=== PATIENT | female | born 1975 | race Caucasian/White ===

== ENCOUNTER 2019-05-23 15:16 | Emergency (ER) | payer BC ==
--- OUTSIDE RECORDS SUMMARY | 2019-05-23 15:32 | XMS REPORT | Clinical Summary ---
:1975 Author Organization [facility] Address [address] [place] [id number] Care Team Providers Name Role Phone James Linton MD Primary Care Provider Allergies No Known Allergies Medications Medication Sig Dispensed Refills Start Date End Date Status citalopram (CeleXA) 20 Take 20 mg by 0 Active MG tablet mouth daily. HYDROcodone-acetaminophe Take 1 tablet by 0 Active n (NORCO) 10-325 mg per mouth every 6 tablet (six) hours as needed for moderate pain. cyclobenzaprine Take 10 mg by 0 Active (FLEXERIL) 10 mg tablet mouth 3 (three) times a day as needed for muscle spasms. gabapentin (NEURONTIN) Take 100 mg by 0 Active 100 mg capsule mouth nightly. Active Problems Problem Noted Date Acute bilateral low back pain with right-sided sciatica 02/17/2017 Lumbar strain 02/17/2017 Lumbar degenerative disc disease 02/17/2017 Social History Tobacco Use Types Packs/Day Years Used Date Never Assessed Sex Assigned at Date Recorded Not on file Job Start Date Occupation Industry Not on file Not on file Not on file Travel History Travel Start Travel End No recent travel history available. Last Filed Vital Signs Not on file Plan of Treatment Health Maintenance Due Date Last Done Comments INFLUENZA VACCINE 05/17/2019 Results Not on fileafter 05/22/2018 (Home) [address] [place] [address] Advance Directives Patient has advance care planning documents on file. For more information, please contact:Jah Garay[address] [address]
[2019-05-23] MEDS ORDERED: NA CHLORIDE 0.9% 1,000 ML ONE (15:52)
[2019-05-23 15:54] LABS: Absolute Lymphocytes (CBC) 2.3 K/uL (0.7-4.9); Basophils % 1.1 % (0-1.3); RBC Red Blood Cell Count 3.97 M/uL (3.86-4.86)
[2019-05-23 16:18] LABS: ALT/SGPT 42 U/L (12-78); AST/SGOT 14 U/L (15-37); Albumin 3.5 g/dL (3.4-5.0); Alkaline Phosphatase 79 U/L (45-117); BUN Blood Urea Nitrogen 18 mg/dL (7-18); Bicarbonate 24 mmol/L (21-32); Bilirubin Direct < 0.1 mg/dL (0-0.2); Bilirubin Total 0.3 mg/dL (0.2-1.0); Glucose Level 145 mg/dL (74-106); Lipase 101 U/L (73-393); Potassium 3.4 mmol/L (3.5-5.1); Protein, Total 6.2 g/dL (6.4-8.2); Sodium Level 142 mmol/L (136-145)
--- NOTE | 2019-05-23 16:58 | RAD REPORT ---
EXAM DESCRIPTION: CT - Abdomen Pelvis W Contrast - 05/23/2019 4:35 pm CLINICAL HISTORY: Abdominal pain . COMPARISON: 2016 TECHNIQUE: Computed axial tomography of the abdomen pelvis was obtained. 100 cc Isovue-300 was admin istered intravenously. Oral contrast was not requested which limits evaluation of bowel. All CT scans are performed using dose optimization technique as appropriate and may include automated exposure control or mA/KV adjustment according to patient size. FINDINGS: A 5 millimeter calculus left kidney. No hydronephrosis. Right kidney unremarkable Postsurgical changes involve the stomach. Cholecystectomy The liver, spleen, pancreas, adrenal appear unremarkable. There is no evidence of diverticulitis. Normal appendix Hysterectomy. 2 centimeter irregularly-shaped left ovarian cyst without significant free fluid IMPRESSION: 2 centimeter irregularly-shaped left ovarian cyst without significant free fluid. 5 millimeter nonobstructing left renal calculus
--- NOTE | 2019-05-23 17:07 | ER ---
Nurse's Notes [facility] Name: Mary Carter Age: 43 yrs Sex: Female : 1975 Arrival Date: 05/23/2019 Time: 15:18 Bed 16 Private MD: Diagnosis: Unspecified ovarian cysts Presentation: 05/23 15:24 Presenting complaint: Patient states: LUQ abdominal pain and fatigue with bloating aj since October. Transition of care: patient was not received from another setting of care. Onset of symptoms was October 2018. Risk Assessment: Do you want to hurt yourself or someone else? Patient reports no desire to harm self or others. Initial Sepsis Screen: Does the patient meet any 2 criteria? No. Patient's initial sepsis screen is negative. Does the patient have a suspected source of infection? No. Patient's initial sepsis screen is negative. Care prior to arrival: None. 15:24 Method Of Arrival: Ambulatory aj 15:24 Acuity: MALIA 3 aj Triage Assessment: 15:25 General: Appears in no apparent distress. comfortable, Behavior is calm, cooperative, aj appropriate for age. Pain: Complains of pain in left upper quadrant. Neuro: Level of Consciousness is awake, alert, obeys commands, Oriented to person, place, time, situation, Appropriate for age. Respiratory: Airway is patent Respiratory effort is even, unlabored, Respiratory pattern is regular, symmetrical. GI: Reports upper abdominal pain, bloating. Derm: Skin is intact, is healthy with good turgor, Skin is pink, warm \T\ dry. normal. 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 - Social history:: Smoking status: Patient/guardian denies using tobacco. - Ebola Screening: : Patient negative for fever greater than or equal to 101.5 degrees Fahrenheit, and additional compatible Ebola Virus Disease symptoms Patient denies exposure to infectious person Patient denies travel to an Ebola-affected area in the 21 days before illness onset No symptoms or risks identified at this time. Screenin:57 Abuse screen: Denies threats or abuse. Denies injuries from another. Nutritional screening: No deficits noted. Tuberculosis screening: No symptoms or risk factors identified. Fall Risk None identified. Assessment: 15:57 GI: Bowel sounds present X 4 quads. Abd is soft and non tender in right upper quadrant wh and right lower quadrant Abdomen is tender to palpation in left upper quadrant and left lower quadrant. 16:09 Reassessment: Patient appears in no apparent distress at this time. Patient and/or wh family updated on plan of care and expected duration. Pain level reassessed. Patient is alert, oriented x 3, equal unlabored respirations, skin warm/dry/pink. 17:44 Reassessment: Patient appears in no apparent distress at this time. Patient and/or wh family updated on plan of care and expected duration. Pain level reassessed. Patient is alert, oriented x 3, equal unlabored respirations, skin warm/dry/pink. Patient states feeling better. Vital Signs: 15:25 BP 126 / 73; Pulse 95; Resp 16; Temp 98.5; Pulse Ox 98% on R/A; Weight 68.04 kg; Height aj 5 ft. 6 in. (167.64 cm); 16:01 BP 112 / 80; Pulse 86; Resp 16; Pulse Ox 97% on R/A; wh 17:30 BP 113 / 77; Pulse 60; Resp 18; Pulse Ox 97% on R/A; wh 15:25 Body Mass Index 24.21 (68.04 kg, 167.64 cm) ED Course: 15:18 Patient arrived in ED. as 15:21 Deepthi Espana FNP-C [facility]. kb 15:21 Bobby Llamas MD is Attending Physician. kb 15:25 Triage completed. aj 15:25 Arm band placed on left wrist. Patient placed in an exam room. aj 15:31 Yodit Mix is Primary Nurse. 15:40 Inserted saline lock: 22 gauge in right antecubital area, using aseptic technique. Blood collected. 15:58 Patient has correct armband on for positive identification. Bed in low position. Call light in reach. Side rails up X 1. Pulse ox on. NIBP on. 16:35 CT Abd/Pelvis - IV Contrast Only In Process Unspecified. EDMS 16:35 CT completed. Patient tolerated procedure well. Patient moved to CT. Patient moved back nj from CT. 17:45 No provider procedures requiring assistance completed. IV discontinued, intact, bleeding controlled, No redness/swelling at site. Administered Medications: 15:57 Drug: NS 0.9% 1000 ml Route: IV; Rate: 1000 ml; Site: right antecubital; 17:46 Follow up: Response: No adverse reaction; IV Status: Completed infusion 17:20 Drug: TORadol - Ketorolac 15 mg Route: IVP; Site: right antecubital; 17:46 Follow up: Response: No adverse reaction Outcome: 17:06 Discharge ordered by . hyun 17:45 Discharged to home ambulatory. 17:45 Condition: good 17:45 Discharge instructions given to patient, Instructed on discharge instructions, follow up and referral plans. medication usage, POC Ovarian Cyst Demonstrated understanding of instructions, follow-up care, medications, POC Prescriptions given X 1. 17:46 Patient left the ED. Signatures: Dispatcher [employer] EDMS Deepthi Espana, DESTINY-C INFANT AND TODDLER TEACHER-Shelby Lynne, RN Alysa Koch Nathan nj Habalo, Winsy Corrections: (The following items were deleted from the chart) 16:00 15:25 Allergies: citalopram; [facility] 16:00 15:25 PMHx: GERD; [facility] 16:00 15:57 GI: Bowel sounds present X 4 quads. Abd is soft and non tender [facility]
--- NOTE | 2019-05-23 17:07 | EDPHYS ---
Physician Documentation [facility] Name: Mary Carter Age: 43 yrs Sex: Female : 1975 Arrival Date: 05/23/2019 Time: 15:18 Bed 16 Private MD: DORON Physician Bobby Llamas HPI: 05/23 15:48 This 43 yrs old Female presents to ER via Ambulatory with complaints of kb Abdominal Pain, Diarrhea. 15:48 The patient presents with abdominal pain in the left upper quadrant, in the left lower kb quadrant. Onset: The symptoms/episode began/occurred 7 month(s) ago. The symptoms do not radiate. Associated signs and symptoms: none. The symptoms are described as intermittent, sharp. Modifying factors: The symptoms are alleviated by nothing, the symptoms are aggravated by food. Severity of pain: At its worst the pain was moderate in the emergency department the pain has improved. The patient has not experienced similar symptoms in the past. The patient has not recently seen a physician. Pt reports she has felt very tired and lethargic over the past 7 months. States whatever she eats comes out the other end undigested so she is concerned that she is deficient in something. Was seen by the surgeon that did her gastric sleeve for the digestion concern and he checked her sleeve and small intestine and said everything was fine. Was scheduled to have a colonoscopy but didn't think she could make it to the appt without falling asleep. Her doctors are in [facility]. 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 - Social history:: Smoking status: Patient/guardian denies using tobacco. - Ebola Screening: : Patient negative for fever greater than or equal to 101.5 degrees Fahrenheit, and additional compatible Ebola Virus Disease symptoms Patient denies exposure to infectious person Patient denies travel to an Ebola-affected area in the 21 days before illness onset No symptoms or risks identified at this time. ROS: 15:48 Eyes: Negative for injury, pain, redness, and discharge, ENT: Negative for injury, kb pain, and discharge, Neck: Negative for injury, pain, and swelling, Cardiovascular: Negative for chest pain, palpitations, and edema, Respiratory: Negative for shortness of breath, cough, wheezing, and pleuritic chest pain, Back: Negative for injury and pain, : Negative for injury, bleeding, discharge, and swelling, MS/Extremity: Negative for injury and deformity, Skin: Negative for injury, rash, and discoloration, Neuro: Negative for headache, weakness, numbness, tingling, and seizure. 15:48 Constitutional: Positive for fatigue, malaise. 15:48 Abdomen/GI: Positive for abdominal pain. Exam: 15:48 Constitutional: This is a well developed, well nourished patient who is awake, alert, kb and in no acute distress. Head/Face: Normocephalic, atraumatic. ENT: Nares patent. No nasal discharge, no septal abnormalities noted. Tympanic membranes are normal and external auditory canals are clear. Oropharynx with no redness, swelling, or masses, exudates, or evidence of obstruction, uvula midline. Mucous membranes moist. Neck: Trachea midline, no thyromegaly or masses palpated, and no cervical lymphadenopathy. Supple, full range of motion without nuchal rigidity, or vertebral point tenderness. No Meningismus. Chest/axilla: Normal chest wall appearance and motion. Nontender with no deformity. No lesions are appreciated. Cardiovascular: Regular rate and rhythm with a normal S1 and S2. No gallops, murmurs, or rubs. Normal PMI, no JVD. No pulse deficits. Respiratory: Lungs have equal breath sounds bilaterally, clear to auscultation and percussion. No rales, rhonchi or wheezes noted. No increased work of breathing, no retractions or nasal flaring. Back: No spinal tenderness. No costovertebral tenderness. Full range of motion. Skin: Warm, dry with normal turgor. Normal color with no rashes, no lesions, and no evidence of cellulitis. MS/ Extremity: Pulses equal, no cyanosis. Neurovascular intact. Full, normal range of motion. Neuro: Awake and alert, GCS 15, oriented to person, place, time, and situation. Cranial nerves II-XII grossly intact. Motor strength 5/5 in all extremities. Sensory grossly intact. Cerebellar exam normal. Normal gait. 15:48 Abdomen/GI: Inspection: abdomen appears normal, Bowel sounds: normal, in all quadrants, Palpation: soft, in all quadrants, nontender, in the right upper quadrant and right lower quadrant, moderate abdominal tenderness, in the left upper quadrant and left lower quadrant. Vital Signs: 15:25 BP 126 / 73; Pulse 95; Resp 16; Temp 98.5; Pulse Ox 98% on R/A; Weight 68.04 kg; Height aj 5 ft. 6 in. (167.64 cm); 16:01 BP 112 / 80; Pulse 86; Resp 16; Pulse Ox 97% on R/A; wh 17:30 BP 113 / 77; Pulse 60; Resp 18; Pulse Ox 97% on R/A; wh 15:25 Body Mass Index 24.21 (68.04 kg, 167.64 cm) aj MDM: 15:29 Patient medically screened. [facility] 15:53 Data reviewed: vital signs, nurses notes. Data interpreted: Pulse oximetry: on room air kb is 98 %. Interpretation: normal. 17:01 Counseling: I had a detailed discussion with the patient and/or guardian regarding: the kb historical points, exam findings, and any diagnostic results supporting the discharge/admit diagnosis, lab results, radiology results, the need for outpatient follow up, a family practitioner, to return to the emergency department if symptoms worsen or persist or if there are any questions or concerns that arise at home. 05/23 15:36 Order name: Basic Metabolic Panel; Complete Time: 16:20 kb 05/23 15:36 Order name: CBC with Diff; Complete Time: 15:59 kb 05/23 15:36 Order name: Hepatic Function; Complete Time: 16:20 kb 05/23 15:36 Order name: Lipase; Complete Time: 16:20 kb 05/23 15:36 Order name: CT Abd/Pelvis - IV Contrast Only; Complete Time: 17:01 kb 05/23 15:36 Order name: TSH; Complete Time: 16:20 kb 05/23 15:36 Order name: IV Saline Lock; Complete Time: 15:46 kb 05/23 15:36 Order name: Labs collected and sent; Complete Time: 15:46 kb Administered Medications: 15:57 Drug: NS 0.9% 1000 ml Route: IV; Rate: 1000 ml; Site: right antecubital; 17:46 Follow up: Response: No adverse reaction; IV Status: Completed infusion 17:20 Drug: TORadol - Ketorolac 15 mg Route: IVP; Site: right antecubital; 17:46 Follow up: Response: No adverse reaction Disposition: 05/24 09:13 Co-signature as Attending Physician, Bobby Llamas MD I agree with the assessment and chito plan of care. Disposition: 05/23/19 17:06 Discharged to Home. Impression: Unspecified ovarian cysts. - Condition is Stable. - Discharge Instructions: Ovarian Cyst, [id number]. - Prescriptions for Diclofenac Sodium 75 mg Oral Tablet, Delayed Release (E.C.) - take 1 tablet by ORAL route 2 times per day As needed; 30 tablet. - Work release form, Medication Reconciliation Form, Thank You Letter, Antibiotic Education, Prescription Opioid Use form. - Follow up: Emergency Department; When: As needed; Reason: Worsening of condition. Follow up: Private Physician; When: 2 - 3 days; Reason: Recheck today's complaints, Continuance of care, Re-evaluation by your physician. Signatures: Dispatcher [employer] Deepthi Canales, PAWN SHOP KEEPER-C PAWN SHOP KEEPER-CkShelby Ibarra RN RN aj Anderson, Corey, MD MD cha Habalo, Winsy Corrections: (The following items were deleted from the chart) 05/23 16:00 15:25 Allergies: citalopram; [facility] 16:00 15:25 PMHx: GERD; [facility] 17:46 17:06 05/23/2019 17:06 Discharged to Home. Impression: Unspecified ovarian cysts. Condition is Stable. Discharge Instructions: Ovarian Cyst, [id number]. Prescriptions for Diclofenac Sodium 75 mg Oral Tablet, Delayed Release (E.C.) - take 1 tablet by ORAL route 2 times per day As needed; 30 tablet. and Forms are Work release form, Medication Reconciliation Form, Thank You Letter, Antibiotic Education, Prescription Opioid Use. Follow up: Emergency Department; When: As needed; Reason: Worsening of condition. Follow up: Private Physician; When: 2 - 3 days; Reason: Recheck today's complaints, Continuance of care, Re-evaluation by your physician. kb
[2019-05-23] MEDS ORDERED: KETOROLAC 30 MG/ML INJ ONE (17:17)
== END 2019-05-23 17:46 | disposition home or self-care (01) ==
LOC: ER 15:16
DX: N83.202 Unspecified ovarian cyst, left side (principal); N20.0 Calculus of kidney; K21.9 Gastro-esophageal reflux disease without esophagitis
CPT/HCPCS: 96361; 85025; 80048; 36415; 80076; 84443; 83690; 74177; 96374; 99284; Q9967; J7030

== ENCOUNTER 2019-09-10 08:38 | Emergency (ER) | payer BC ==
[2019-09-10] MEDS ORDERED: FENTANYL CITR 100 MCG/2 ML ONE (08:42)
[2019-09-10] MEDS ORDERED: ONDANSETRON 4 MG/2 ML VIAL ONE ×3 (08:42→12:38)
[2019-09-10] MEDS ORDERED: PANTOPRAZOLE 40 MG INJ ONE (08:42)
[2019-09-10] MEDS ORDERED: NA CHLORIDE 0.9% 1,000 ML ONE (08:42)
--- OUTSIDE RECORDS SUMMARY | 2019-09-10 08:47 | XMS REPORT ---
:1975 [facility] Address [address] [place] [address] Dr. Howard [address] [place] [id number] Care Team Providers Name Role Phone Unavailable Unavailable Unavailable Problems This patient has no known problems. Allergies, Adverse Reactions, Alerts This patient has no known allergies or adverse reactions. Medications This patient has no known medications. Encounters Start End Encounter Admission Attending Care Care Encounter Date/Time Date/Time Type Type Clinicians Facility Department ID 2019-08-17 2019-08-17 Outpatient [facility] [id number] 10:55:00 10:55:00
--- NOTE | 2019-09-10 09:12 | RAD REPORT ---
EXAM DESCRIPTION: CT - Abdomen Pelvis W/Wo Contrast - 09/10/2019 9:00 am CLINICAL HISTORY: hx of gastric sleeve ? hematemesis. Epigasric pain;Abd pain COMPARISON: CT study May 2019 TECHNIQUE: Biphasic, helical CT imaging of the abdomen and pelvis was performed following 100 ml non -ionic IV contrast. No oral contrast. All CT scans are performed using dose optimization technique as appropriate and may include automated exposure control or mA/KV adjustment according to patient size. FINDINGS: No suspicious findings in the lung bases. Breast implants are in place. No para cardial ef fusion or cardiomegaly. The liver, spleen, and pancreas show no suspicious findings. Gallbladder is absent. No biliary tree d ilatation. No hydronephrosis or obstructing calculi. A 6 millimeter lower pole left renal calculus is similar to comparison. No perinephric stranding. Pyelonephritis and isodense masses are not excluded on a nonco ntrast study. Partially filled urinary bladder shows no suspicious findings. Partial hysterectomy chito nges are present. A 2.3 centimeter left ovarian cyst is identified. Right ovary is not clearly identi fiable. No right adnexal mass. No adrenal abnormalities. No gastric dilatation or wall thickening. Gastric sleeve surgical changes are noted. Moderate stool v olume present throughout the colon. Several hypodense areas are present within the bowel believed to be part of ingested medication. No free air or pneumatosis. Physiologic quantity of free fluid is present in the cul de sac. No carlos ia, mass or bulky lymphadenopathy. No suspicious bony findings. IMPRESSION: No obstruction, appendicitis or other surgically emergent finding. Physiologic quantity of free fluid in the cul de sac. Patient has a 2.3 centimeter left ovarian cyst without evidence for cyst rupture or hemorrhage. No acute finding. Isodense masses and pyelonephritis are not excluded on a noncontrast study.
[2019-09-10 09:17] LABS: Absolute Lymphocytes (CBC) 2.3 K/uL (0.7-4.9); Basophils % 0.9 % (0-1.3); Hematocrit 39.1 % (36.0-45.0); Lymphocytes % 21.9 % (15.3-44.8); RBC Red Blood Cell Count 4.28 M/uL (3.86-4.86)
[2019-09-10 09:34] LABS: Albumin 3.7 g/dL (3.4-5.0); Bilirubin Direct 0.2 mg/dL (0-0.2); Bilirubin Total 0.7 mg/dL (0.2-1.0); Potassium 4.1 mmol/L (3.5-5.1)
[2019-09-10] MEDS ORDERED: PROMETHAZINE 25 MG/ML VIAL ONE (09:45)
[2019-09-10 10:36] LABS: Barbiturates NEGATIVE (NEGATIVE); Benzodiazepines NEGATIVE (NEGATIVE); Cocaine NEGATIVE (NEGATIVE); METHAMPHETAM NEGATIVE (NEGATIVE); Methadone NEGATIVE (NEGATIVE); Opiates NEGATIVE (NEGATIVE); Phencyclidine NEGATIVE (NEGATIVE); THC Cannibis NEGATIVE (NEGATIVE)
[2019-09-10 11:34] LABS: Urine Blood NEGATIVE (NEG); Urine Glucose NEGATIVE (NEG); Urine Protein NEGATIVE (NEG)
--- NOTE | 2019-09-10 11:59 | EKG ---
Test Date: 2019-09-10 Test Time: 09:08:33 Elevator Erector Helper: FUENTES MEASUREMENT RESULTS: Intervals: Rate: 103 TN: 152 QRSD: 88 QT: 358 QTc: 468 [place]: P: 71 TN: 152 QRS: 82 T: 60 INTERPRETIVE STATEMENTS: Sinus tachycardia Possible Left atrial enlargement Otherwise normal ECG No previous ECG available for comparison Electronically Signed On 09-10-19 11:59:11 SUPPORT ARCHITECT by Vijay Diehl
[2019-09-10] MEDS ORDERED: MORPHINE 4 MG/ML SYR ONE (12:38)
--- NOTE | 2019-09-10 13:13 | ER ---
Nurse's Notes [facility] Name: Mary Carter Age: 44 yrs Sex: Female : 1975 Arrival Date: 09/10/2019 Time: 08:39 Bed 2 Private MD: Diagnosis: Epigastric pain;Complication with gastric sleeve Presentation: 09/10 08:50 Acuity: MALIA 1 la1 08:50 Presenting complaint: EMS states: Pt reports mild epigastric pain on her way to work jl7 then at work she started having severe epigastric pain radiating straight through to the back, severe nausea and inability to vomit. Transition of care: patient was not received from another setting of care. Onset of symptoms was September 10, 2019 at 06:30. Risk Assessment: Do you want to hurt yourself or someone else? Patient reports no desire to harm self or others. Initial Sepsis Screen: Does the patient meet any 2 criteria? No. Patient's initial sepsis screen is negative. Does the patient have a suspected source of infection? No. Patient's initial sepsis screen is negative. Care prior to arrival: Medication(s) given: zofran 4 mg, 50 mg Fentanyl IVP IV initiated. 20 GA, in the left antecubital area. 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 - Social history:: Smoking status: Patient uses tobacco products, smokes one pack cigarettes per day. - Ebola Screening: : Patient denies travel to an Ebola-affected area in the 21 days before illness onset. Screenin:16 Abuse screen:. Nutritional screening: No deficits noted. Tuberculosis screening: No tw2 symptoms or risk factors identified. Fall Risk Secondary diagnosis (15 points) impaired mobility. Assessment: 08:50 General: Appears distressed, ill, Behavior is cooperative, anxious, crying. Pain: jl7 Complains of pain in epigastric area Pain radiates to mid back area Pain currently is 7 out of 10 on a pain scale. Pain began gradually, 1 hour ago. Is continuous. Neuro: Level of Consciousness is awake, alert, obeys commands, Oriented to person, place, time, situation. Cardiovascular: Patient's skin is warm and dry. Respiratory: Airway is patent Respiratory effort is even, unlabored, Respiratory pattern is symmetrical, tachypnea Breath sounds are clear bilaterally. GI: Abdomen is non-distended, Bowel sounds present X 4 quads. : No signs and/or symptoms were reported regarding the genitourinary system. Denies burning with urination, pain. Derm: Skin is pink, warm \T\ dry. 10:30 Reassessment: Patient appears in no apparent distress at this time. No changes from 7 previously documented assessment. Patient and/or family updated on plan of care and expected duration. Pain level reassessed. Patient is alert, oriented x 3, equal unlabored respirations, skin warm/dry/pink. 11:30 Reassessment: Patient appears in no apparent distress at this time. No changes from jl7 previously documented assessment. Patient and/or family updated on plan of care and expected duration. Pain level reassessed. Patient is alert, oriented x 3, equal unlabored respirations, skin warm/dry/pink. 12:45 Reassessment: pt c/o increased pain, rated 4/10, ERD notified, see MAR for orders. jl7 13:07 Reassessment: EMS at bedside to transport pt. jl7 Vital Signs: 08:45 BP 144 / 120; Pulse 120; Resp 22 S; Pulse Ox 96% on R/A; Pain 7/10; jl7 09:15 BP 108 / 69; Pulse 101; Resp 22 S; Pulse Ox 96% on R/A; jl7 09:51 BP 102 / 73; Pulse 95; Resp 22 S; Temp 98.1(TE); Pulse Ox 98% on R/A; jl7 10:06 Weight 63.96 kg (R); Height 5 ft. 6 in. (167.64 cm) (R); jl7 10:22 BP 107 / 74; Pulse 86; Resp 16 S; Pulse Ox 100% on R/A; jl7 11:35 BP 109 / 68; Pulse 86; Resp 19; Pulse Ox 99% on R/A; tw2 12:35 BP 101 / 62; Pulse 75; Resp 16; Pulse Ox 100% on R/A; tw2 10:06 Body Mass Index 22.76 (63.96 kg, 167.64 cm) jl7 ED Course: 08:39 Patient arrived in ED. la1 08:39 ED physician to see patient. jl7 08:42 Julian Linton, RN is Primary Nurse. jl7 08:42 Tres Kennedy MD is Attending Physician. ps1 08:45 Inserted saline lock: 18 gauge in right antecubital area, using aseptic technique. jl7 Blood collected. Maintain EMS IV. Dressing intact. Good blood return noted. Site clean \T\ dry. Gauge \T\ site: 20 left AC. 08:50 Bed in low position. Call light in reach. Side rails up X2. residential monitor on. Pulse tw2 ox on. NIBP on. 08:51 Triage completed. la1 09:06 CT Abd/Pelvis- W/WO Contrast In Process Unspecified. EDMS 09:16 EKG done, by geoscience technician. reviewed by Tres Kennedy MD. sm3 09:16 Arm band placed on. tw2 09:20 Straight cath inserted, using sterile technique, 16 Fr. Specimen obtained. Returned jl7 cloudy urine. Patient tolerated well. 09:27 Initial lab(s) drawn, by wv, sent to lab. Urine collected: straight cath specimen, jl7 cloudy. 09:45 ED physician to see patient. jl7 12:45 No provider procedures requiring assistance completed. Patient transferred, IV remains jl7 in place. intact, No redness/swelling at site. 18 g to right AC infiltrated and discontinued at this time. Administered Medications: 08:45 Drug: ProTONIX 80 mg Route: IVP; Site: right antecubital; la1 10:03 Follow up: Response: No adverse reaction jl7 08:45 Drug: fentaNYL (PF) 100 mcg Route: IVP; Site: right antecubital; la1 09:00 Follow up: Response: No adverse reaction; Pain is decreased jl7 08:45 Drug: Zofran 8 mg Route: IVP; Site: right antecubital; la1 09:00 Follow up: Response: No adverse reaction; Nausea is decreased jl7 08:45 Drug: NS 0.9% 1000 ml Route: IV; Rate: 1000 ml; Site: right antecubital; la1 12:00 Follow up: Response: No adverse reaction; IV Status: Completed infusion; IV Intake: jl7 1000ml 09:50 Drug: Phenergan 25 mg Route: IVP; Site: left antecubital; jl7 10:10 Follow up: Response: No adverse reaction; Nausea is decreased jl7 13:02 Drug: morphine 4 mg Route: IVP; Site: left antecubital; jl7 13:02 Follow up: Response: No adverse reaction jl7 13:02 Drug: Zofran 4 mg Route: IVP; Site: left antecubital; jl7 13:02 Follow up: Response: No adverse reaction jl7 13:03 CANCELLED (wrong order): fentaNYL (PF) 25 mcg IVP once; RASS on ADMIN: Combtv4, Very jl7 Agttd3, Agttd2, Rstlss1, AlertClm0, Drwsy-1, Lt Sdtn-2, Mod Sdtn-3, Dp Sdtn-4, UnArsble-5 Intake: 12:00 IV: 1000ml; Total: 1000ml. jl7 Outcome: 12:45 Transferred by ground EMS to [facility], Transfer form completed. X-rays sent jl7 w/ patient. 12:45 Condition: stable 12:45 Discharge instructions given to patient, family, Instructed on the need for transfer, Demonstrated understanding of instructions. 13:11 ER care complete, transfer ordered by . ps1 13:19 Patient left the ED. jl7 Signatures: Dispatcher [employer] EDMS Bubba Stewart RN RN la1 Cristela Wang RN RN tw2 Julian Linton RN RN jl7 Tres Kennedy MD MD ps1 Cyn Mendoza sm3 Corrections: (The following items were deleted from the chart) 13:03 09:50 fentaNYL (PF) 25 mcg IVP in right antecubital jl7 jl7 13:03 10:10 Response: No adverse reaction; Pain is decreased jl7 jl7 13:07 12:35 Reassessment: Patient appears in no apparent distress at this time. No changes jl7 from previously documented assessment. Patient and/or family updated on plan of care and expected duration. Pain level reassessed. Patient is alert, oriented x 3, equal unlabored respirations, skin warm/dry/pink. tw2
--- NOTE | 2019-09-10 13:14 | EDPHYS ---
Physician Documentation [facility] Name: Mary Carter Age: 44 yrs Sex: Female : 1975 Arrival Date: 09/10/2019 Time: 08:39 Bed 2 Private MD: ED Physician Tres Kennedy HPI: 09/10 08:43 This 44 yrs old Female presents to ER via Unassigned with complaints of ps1 epigastric pain s/p gastric sleeve. 08:[address] Willingham with [facility] September 2017. Now presenting ps1 with severe epigastric pain and nausea and vomiting. Reported hematemesis with severe vomiting. No obvious blood during vomiting events. Patient in obvious distress and diaphoretic. . 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 - Social history:: Smoking status: Patient uses tobacco products, smokes one pack cigarettes per day. - Ebola Screening: : Patient denies travel to an Ebola-affected area in the 21 days before illness onset. ROS: 08:43 Eyes: Negative for injury, pain, redness, and discharge, ENT: Negative for injury, ps1 pain, and discharge, Cardiovascular: Negative for chest pain, palpitations, and edema, Respiratory: Negative for shortness of breath, cough, wheezing, and pleuritic chest pain, MS/Extremity: Negative for injury and deformity, Skin: Negative for injury, rash, and discoloration. 08:43 Constitutional: Positive for poor PO intake. 08:43 Abdomen/GI: Positive for abdominal pain, nausea and vomiting, hematemesis. 08:43 Psych: Positive for anxiety. Exam: 08:43 Head/Face: Normocephalic, atraumatic. Eyes: Pupils equal round and reactive to light, ps1 extra-ocular motions intact. Lids and lashes normal. Conjunctiva and sclera are non-icteric and not injected. Cardiovascular: Regular rate and rhythm. No gallops, murmurs, or rubs. Normal PMI, no JVD. No pulse deficits. Respiratory: Lungs have equal breath sounds bilaterally, clear to auscultation and percussion. No rales, rhonchi or wheezes noted. No increased work of breathing, no retractions or nasal flaring. Back: No spinal tenderness. No costovertebral tenderness. Full range of motion. MS/ Extremity: Pulses equal, no cyanosis. Neurovascular intact. Full, normal range of motion. 08:43 Constitutional: The patient appears alert, anxious, in obvious distress, severely distressed, in obvious pain. 08:43 Abdomen/GI: Inspection: scar(s), are noted in the left upper quadrant and left lower quadrant, Bowel sounds: normal, Palpation: moderate abdominal tenderness, in the epigastric area and left upper quadrant. 08:43 Psych: Behavior/mood is anxious. Vital Signs: 08:45 BP 144 / 120; Pulse 120; Resp 22 S; Pulse Ox 96% on R/A; Pain 7/10; jl7 09:15 BP 108 / 69; Pulse 101; Resp 22 S; Pulse Ox 96% on R/A; jl7 09:51 BP 102 / 73; Pulse 95; Resp 22 S; Temp 98.1(TE); Pulse Ox 98% on R/A; jl7 10:06 Weight 63.96 kg (R); Height 5 ft. 6 in. (167.64 cm) (R); jl7 10:22 BP 107 / 74; Pulse 86; Resp 16 S; Pulse Ox 100% on R/A; jl7 11:35 BP 109 / 68; Pulse 86; Resp 19; Pulse Ox 99% on R/A; tw2 12:35 BP 101 / 62; Pulse 75; Resp 16; Pulse Ox 100% on R/A; tw2 10:06 Body Mass Index 22.76 (63.96 kg, 167.64 cm) jl7 MDM: 08:51 Patient medically screened. ps1 13:12 Data reviewed: vital signs, nurses notes, lab test result(s), radiologic studies, and ps1 as a result, I will. Counseling: I had a detailed discussion with the patient and/or guardian regarding: the historical points, exam findings, and any diagnostic results supporting the discharge/admit diagnosis, lab results, radiology results, the need to transfer to another facility, [facility] does not immediately have the required specialist, Patient to see Dr. Willingham at [facility] facility. 09/10 08:42 Order name: CBC with Diff; Complete Time: 09:33 [facility] 09/10 08:42 Order name: ETOH Level; Complete Time: 10:38 [facility] 09/10 08:42 Order name: Hepatic Function; Complete Time: 09:44 [facility] 09/10 08:42 Order name: PT-INR; Complete Time: 10:12 [facility] 09/10 08:42 Order name: Salicylate; Complete Time: 09:44 [facility] 09/10 08:42 Order name: Urine Drug Screen; Complete Time: 10:38 [facility] 09/10 08:42 Order name: CMP; Complete Time: 09:44 [facility] 09/10 08:42 Order name: Lipase; Complete Time: 09:44 [facility] 09/10 08:42 Order name: CT Abd/Pelvis- W/WO Contrast; Complete Time: 09:33 [facility] 09/10 09:50 Order name: Urine Dipstick--Ancillary (enter results); Complete Time: 11:35 09/10 08:42 Order name: EKG; Complete Time: 08:43 [facility] 09/10 08:42 Order name: EKG - Nurse/Tech; Complete Time: 09:08 [facility] 09/10 08:42 Order name: IV Saline Lock; Complete Time: 09:03 [facility] 09/10 08:42 Order name: Labs collected and sent; Complete Time: 09:03 [facility] 09/10 08:42 Order name: Urine Dipstick-Ancillary (obtain specimen); Complete Time: 09:27 [facility] 09/10 09:09 Order name: Straight Cath - Urine; Complete Time: 09:27 tw2 Administered Medications: 08:45 Drug: ProTONIX 80 mg Route: IVP; Site: right antecubital; la1 10:03 Follow up: Response: No adverse reaction jl7 08:45 Drug: fentaNYL (PF) 100 mcg Route: IVP; Site: right antecubital; la1 09:00 Follow up: Response: No adverse reaction; Pain is decreased jl7 08:45 Drug: Zofran 8 mg Route: IVP; Site: right antecubital; la1 09:00 Follow up: Response: No adverse reaction; Nausea is decreased jl7 08:45 Drug: NS 0.9% 1000 ml Route: IV; Rate: 1000 ml; Site: right antecubital; la1 12:00 Follow up: Response: No adverse reaction; IV Status: Completed infusion; IV Intake: jl7 1000ml 09:50 Drug: Phenergan 25 mg Route: IVP; Site: left antecubital; jl7 10:10 Follow up: Response: No adverse reaction; Nausea is decreased jl7 13:02 Drug: morphine 4 mg Route: IVP; Site: left antecubital; jl7 13:02 Follow up: Response: No adverse reaction 7 13:02 Drug: Zofran 4 mg Route: IVP; Site: left antecubital; jl7 13:02 Follow up: Response: No adverse reaction 7 13:03 CANCELLED (wrong order): fentaNYL (PF) 25 mcg IVP once; RASS on ADMIN: Combtv4, Very jl7 Agttd3, Agttd2, Rstlss1, AlertClm0, Drwsy-1, Lt Sdtn-2, Mod Sdtn-3, Dp Sdtn-4, UnArsble-5 Disposition: 09/10/19 13:11 Transfer ordered to Other Acute Care Facility. Diagnosis are Epigastric pain, Complication with gastric sleeve. - Reason for transfer: Higher level of care. - Accepting physician is Dark. - Condition is Stable. - Problem is an ongoing problem. - Symptoms are unchanged. Signatures: Dispatcher [employer] EDMS Bubba Stewart RN RN la1 Cristela Wang RN RN tw2 Julian Linton RN RN jl7 Tres Kennedy MD MD ps1 Corrections: (The following items were deleted from the chart) 13:03 10:00 fentaNYL (PF) 25 mcg IVP once; RASS on ADMIN: Combtv4, Very Agttd3, Agttd2, jl7 Rstlss1, AlertClm0, Drwsy-1, Lt Sdtn-2, Mod Sdtn-3, Dp Sdtn-4, UnArsble-5 ordered. [facility] 13:03 10:01 fentaNYL (PF) 25 mcg IVP once; RASS on ADMIN: Combtv4, Very Agttd3, Agttd2, jl7 Rstlss1, AlertClm0, Drwsy-1, Lt Sdtn-2, Mod Sdtn-3, Dp Sdtn-4, UnArsble-5 given. jl7 13:03 13:03 fentaNYL (PF) 25 mcg IVP once; RASS on ADMIN: Combtv4, Very Agttd3, Agttd2, jl7 Rstlss1, AlertClm0, Drwsy-1, Lt Sdtn-2, Mod Sdtn-3, Dp Sdtn-4, UnArsble-5 ordered. jl7 13:19 13:11 09/10/2019 13:11 Transfer ordered to Other Acute Care Facility. Diagnosis is jl7 Epigastric pain; Complication with gastric sleeve. Reason for transfer: Higher level of care. Accepting physician is Dark. Condition is Stable. Problem is an ongoing problem. Symptoms are unchanged. ps1
[2019-09-10 13:29] VITALS: TEMP 98.1
[2019-09-10 13:33] VITALS: BP 101/62; O2SAT 100
== END 2019-09-10 13:19 ==
LOC: ER 08:38
DX: K95.09 Other complications of gastric band procedure (principal); F17.210 Nicotine dependence, cigarettes, uncomplicated; Z88.8 Allergy status to other drugs, medicaments and biological substances
CPT/HCPCS: 93005; 85025; 36415; 80320; 85610; 80329; 80076; 80307 ×8; 81003; 83690; 80053; 74178; 51702; 99291; 99292; Q9967; J2550; C9113; J3010; J7030; J2405 ×3